=== PATIENT | female | born 1985 | race Hispanic/Latino ===

== ENCOUNTER 2021-05-03 13:34 | Emergency (ER) | payer OTHER ==
[~2021-05-03] VITALS: Ht 154.9 cm; Wt 67.0 kg
[2021-05-03] MEDS ORDERED: PROT1TAB2 PO (13:45)
[2021-05-03 15:12] LABS: BASO % 0.5 % (0.0-1.0); EOS # 0.2 10^3/uL (0.0-0.5); EOS % 3.2 % (0.0-3.0); HEMATOCRIT 34.9 % (36.0-47.0); HEMOGLOBIN 10.9 g/dl (12.0-15.5); LYMPH # 1.9 10^3/uL (1.5-5.0); LYMPH % 25.6 % (24.0-44.0); MEAN CORPUSCULAR HEMOGLOBIN 26.1 pg (27.0-33.0); MEAN CORPUSCULAR HGB CONC 31.2 g/dl (32.0-36.5); MEAN CORPUSCULAR VOLUME 83.7 fl (80.0-96.0); MONO # 0.4 10^3/uL (0.0-0.8); MONO % 5.9 % (2.0-8.0); NEUTROPHILS # 4.8 10^3/uL (1.5-8.5); NEUTROPHILS % 64.5 % (36.0-66.0); PLATELET COUNT, AUTOMATED 253 10^3/uL (150-450); RED BLOOD COUNT 4.17 10^6/uL (4.00-5.40); WHITE BLOOD COUNT 7.4 10^3/uL (4.0-10.0)
[2021-05-03 15:42] LABS: ALBUMIN 3.9 GM/DL (3.2-5.2); ALT/SGPT 22 U/L (12-78); BILIRUBIN,DIRECT < 0.1 MG/DL (0.0-0.2); BILIRUBIN,TOTAL 0.4 MG/DL (0.2-1.0); BLOOD UREA NITROGEN 10 MG/DL (7-18); CALCIUM LEVEL 8.5 MG/DL (8.5-10.1); CARBON DIOXIDE LEVEL 25 MEQ/L (21-32); CHLORIDE LEVEL 108 MEQ/L (98-107); CREATININE FOR GFR 0.64 MG/DL (0.55-1.30); GLOMERULAR FILTRATION RATE > 60.0 (>60); GLUCOSE, FASTING 86 MG/DL (70-100); LIPASE 87 U/L (73-393); POTASSIUM SERUM 3.8 MEQ/L (3.5-5.1); SODIUM LEVEL 138 MEQ/L (136-145); TOTAL PROTEIN 7.1 GM/DL (6.4-8.2)
[2021-05-03] MEDS ORDERED: ONDANSETRON 4MG/2ML VIAL IV ONE (16:30)
[2021-05-03] MEDS ORDERED: ACETAMINOPHEN 500 MG TAB PO ONE (16:30)
[2021-05-03] MEDS ORDERED: ISOVUE-370 76% 100ML VIAL As Ordered ONE (16:32)
[2021-05-03 16:43] LABS: HCG, SERUM QUALITATIVE NEGATIVE (NEGATIVE)
--- NOTE | 2021-05-03 18:11 | REPVR ---
PROCEDURE INFORMATION: Exam: CT Abdomen And Pelvis With Contrast Exam date and time: 05/03/2021 4:58 PM Age: 36 years old Clinical indication: Other: Rlq and R flank/low back pain, R/O appendicitis vs stone TECHNIQUE: Imaging protocol: Computed tomography of the abdomen and pelvis with contrast. Radiation optimization: All CT scans at this facility use at least one of these dose optimization techniques: automated exposure control; mA and/or kV adjustment per patient size (includes targeted exams where dose is matched to clinical indication); or iterative reconstruction. Contrast material: ISOVUE 370; Contrast volume: 100 ml; Contrast route: INTRAVENOUS (IV); COMPARISON: No relevant prior studies available. FINDINGS: Liver: Normal. No mass. Gallbladder and bile ducts: Normal. No calcified stones. No ductal dilation. Pancreas: Normal. No ductal dilation. Spleen: Normal. No splenomegaly. Adrenal glands: Normal. No mass. Kidneys and ureters: Normal. No hydronephrosis. Stomach and bowel: Unremarkable. No obstruction. No mucosal thickening. Appendix: Appendix is unremarkable. Intraperitoneal space: Unremarkable. No free air. No significant fluid collection. Vasculature: Unremarkable. No abdominal aortic aneurysm. Lymph nodes: Unremarkable. No enlarged lymph nodes. Urinary bladder: Unremarkable as visualized. Reproductive: 1.7 cm cyst in the right ovary. Bones/joints: Unremarkable. No acute fracture. Soft tissues: Unremarkable. IMPRESSION: No acute abdominal or pelvic abnormality. Electronically signed by: Burke Huerta On 05/03/2021 18:11:21 PM
--- NOTE | 2021-05-03 19:41 | REP ---
INDICATION: RLQ/R pelvic pain, R ovarian cyst, r/o torsion. COMPARISON: CT scan today. TECHNIQUE: Transabdominal and transvaginal scanning performed. FINDINGS: Uterine dimensions are 8.1 x 4.4 x 5.5 cm. Endometrial echo is 16 mm in AP dimension and centrally placed. There is a rounded echogenic structure in the fundal endometrium 1.1 x 1.0 x 0.8 cm which may represent an endometrial polyp. In the right uterus a fibroid measures 1.8 cm in diameter. The bladder measures 7.4 x 5.4 x 9.1cm. The right ovary has dimensions of 4.2 x 1.8 x 2.7 cm. It's Doppler flow is normal with a resistive index of 0.60. The left ovary dimensions are 2.9 x 2.2 x 2.0 cm. It's Doppler flow was normal with resistive index of 0.63. A complex cystic structure in the right ovary measures 2.3 x 2.9 x 1.6 cm. No free fluid is seen in the cul-de-sac. IMPRESSION: Endometrial polyp is suspected 1.1 cm in maximum diameter. Right uterine fibroid 1.8 cm in diameter. Complex cystic structure right ovary 2.9 cm in maximum diameter may represent a complex dominant follicle. No torsion or free fluid. <Electronically signed by Kris De Los Santos > 05/03/211936
[2021-05-03] MEDS ORDERED: FLAG500T PO (20:05)
[2021-05-03 20:26] VITALS: BP 114/68
--- NOTE | 2021-05-04 06:39 | ED PDOC ---
Post-Departure Follow-Up pelvic us faxed to [facility] and dr quigley for fu Coty Vogt MD May 04, 2021 06:39
== END 2021-05-03 20:33 | disposition home or self-care (01) ==
LOC: M ED 13:34
DX: R10.31 Right lower quadrant pain (principal); N84.0 Polyp of corpus uteri; D25.9 Leiomyoma of uterus, unspecified; N76.0 Acute vaginitis; N83.201 Unspecified ovarian cyst, right side; R11.0 Nausea; R19.7 Diarrhea, unspecified; K21.9 Gastro-esophageal reflux disease without esophagitis; J45.909 Unspecified asthma, uncomplicated; G89.29 Other chronic pain; M54.5 Low back pain; M25.561 Pain in right knee
CPT/HCPCS: 74177; 76830; 76856; 80048; 80076; 81001; 83690; 84703; 85025; 87210; 93976; 96374; 99284; J2405; Q9967

== ENCOUNTER 2021-07-17 10:51 | Day surgery (SDC) | payer OTHER ==
[~2021-07-17] VITALS: Ht 154.9 cm; Wt 64.0 kg
[~2021-07-17 10:51] MED LIST: ACETAMINOPHEN *IV* 1,000 MG IV ONE; ADV100INH INH; ALBU83IN INH; FLAG500T PO; LR 1,000 ML IV ONE; PROT1TAB2 PO; ZONI50CA11
[2021-07-17 11:58] LABS: HEMATOCRIT 36.1 % (36.0-47.0); HEMOGLOBIN 11.6 g/dl (12.0-15.5); MEAN CORPUSCULAR HEMOGLOBIN 26.4 pg (27.0-33.0); MEAN CORPUSCULAR HGB CONC 32.1 g/dl (32.0-36.5); MEAN CORPUSCULAR VOLUME 82.2 fl (80.0-96.0); PLATELET COUNT, AUTOMATED 234 10^3/uL (150-450); RED BLOOD COUNT 4.39 10^6/uL (4.00-5.40); WHITE BLOOD COUNT 5.3 10^3/uL (4.0-10.0)
[2021-07-17 12:18] LABS: BLOOD UREA NITROGEN 10 MG/DL (7-18); CALCIUM LEVEL 8.9 MG/DL (8.5-10.1); CARBON DIOXIDE LEVEL 28 MEQ/L (21-32); CHLORIDE LEVEL 106 MEQ/L (98-107); CREATININE FOR GFR 0.81 MG/DL (0.55-1.30); GLOMERULAR FILTRATION RATE > 60.0 (>60); GLUCOSE, FASTING 108 MG/DL (70-100); POTASSIUM SERUM 4.1 MEQ/L (3.5-5.1); SODIUM LEVEL 137 MEQ/L (136-145)
[2021-07-17 12:22] LABS: HCG, SERUM QUALITATIVE NEGATIVE (NEGATIVE)
[2021-07-17] MEDS ORDERED: MIDAZOLAM INJ 2MG/2ML VIAL (J2250 PER 1MG) As Ordered ONE (13:00)
[2021-07-17] MEDS ORDERED: dexameTHASONE 4 MG/ML 1ML VIAL (J1100 PER 1MG) As Ordered ONE (13:00)
[2021-07-17] MEDS ORDERED: KETOROLAC 60MG 2ML VIAL As Ordered ONE (13:00)
[2021-07-17] MEDS ORDERED: fentaNYL 100 MCG/2 ML INJECTION (J3010) As Ordered ONE (13:00)
[2021-07-17] MEDS ORDERED: LIDOCAINE 2% 100MG/5ML SDV (FOR ANES.) As Ordered ONE (13:00)
[2021-07-17] MEDS ORDERED: ONDANSETRON 4MG/2ML VIAL As Ordered ONE (13:00)
[2021-07-17] MEDS ORDERED: propofoL 200 MG/20 ML VIAL As Ordered ONE (13:00)
[2021-07-17] MEDS ORDERED: METOCLOPRAMIDE INJ 10MG/2ML VIAL (J2765 PER 1) As Ordered ONE (13:00)
[2021-07-17] MEDS ORDERED: SILVER NITRATE APPLICATOR As Ordered ONE ×2 (13:28→14:42)
[2021-07-17] MEDS ORDERED: LEVONORGESTREL 52MG (MIRENA) IUD As Ordered ONE (13:28)
[2021-07-17] MEDS ORDERED: LIDOCAINE 1% SDV 30ML VIAL As Ordered ONE (13:28)
[2021-07-17] MEDS ORDERED: ONDANSETRON 4MG/2ML VIAL IV PRN (14:50)
[2021-07-17] MEDS ORDERED: LR 1,000 ML IV SCH (14:50)
[2021-07-17] MEDS ORDERED: MEPERIDINE INJ 25 MG/ML VIAL (J2175) IV PRN (14:50)
[2021-07-17] MEDS ORDERED: fentaNYL 100 MCG/2 ML INJECTION (J3010) IV PRN (14:50)
[2021-07-17] MEDS ORDERED: oxyCODONE 5MG TAB PO PRN (14:50)
[2021-07-17] MEDS ORDERED: METOCLOPRAMIDE INJ 10MG/2ML VIAL (J2765 PER 1) IV PRN (14:50)
[2021-07-17 16:00] VITALS: BP 111/66
[2021-07-17] MEDS ORDERED: KETOROLAC 30 MG/ML 1ML VIAL IV ONE (20:00)
== END 2021-07-17 16:19 | disposition home or self-care (01) ==
LOC: M SDC 10:51
PROVIDERS: ATTEND Obstetrics & Gynecology
DX: N84.0 Polyp of corpus uteri (principal); N93.9 Abnormal uterine and vaginal bleeding, unspecified; N99.71 Accidental puncture and laceration of a genitourinary system organ or structure during a genitourinary system procedure; J45.909 Unspecified asthma, uncomplicated; K21.9 Gastro-esophageal reflux disease without esophagitis; G43.909 Migraine, unspecified, not intractable, without status migrainosus; Z91.013 Allergy to seafood; Z91.048 Other nonmedicinal substance allergy status; Z91.040 Latex allergy status; Z79.899 Other long term (current) drug therapy; Z79.51 Long term (current) use of inhaled steroids
CPT/HCPCS: 36415; 58300; 58558; 80048; 84703; 85027; 86850; 86900; 86901; 88305; J1100; J1885; J2250; J2405; J2765; J3010; J7298

== ENCOUNTER 2022-03-20 13:10 | Emergency (ER) | payer OTHER ==
[~2022-03-20] VITALS: Ht 185.4 cm; Wt 66.3 kg
[~2022-03-20 13:10] MED LIST changes: -ACETAMINOPHEN *IV* 1,000 MG IV ONE; -LR 1,000 ML IV ONE
[2022-03-20] MEDS ORDERED: TIZA10TA (13:20)
[2022-03-20] MEDS ORDERED: EPIN0.3I11 (13:20)
[2022-03-20] MEDS ORDERED: TOPI25TA10 (13:20)
[2022-03-20 17:19] LABS: BASO % 0.4 % (0.0-1.0); EOS # 0.2 10^3/uL (0.0-0.5); EOS % 1.7 % (0.0-3.0); HEMATOCRIT 36.9 % (36.0-47.0); LYMPH # 2.4 10^3/uL (1.5-5.0); LYMPH % 25.8 % (24.0-44.0); MEAN CORPUSCULAR HEMOGLOBIN 26.7 pg (27.0-33.0); MEAN CORPUSCULAR HGB CONC 32.5 g/dl (32.0-36.5); MONO # 0.6 10^3/uL (0.0-0.8); MONO % 6.9 % (2.0-8.0); NEUTROPHILS % 64.8 % (36.0-66.0); PLATELET COUNT, AUTOMATED 299 10^3/uL (150-450); WHITE BLOOD COUNT 9.3 10^3/uL (4.0-10.0)
[2022-03-20 17:30] LABS: INR 0.9; PROTHROMBIN TIME 12.6 SECONDS (12.7-14.5)
[2022-03-20 17:31] LABS: PARTIAL THROMBOPLASTIN TIME 28.2 SECONDS (25.9-37.0)
[2022-03-20 17:33] LABS: D-DIMER QUANT 614.62 ng/ml (<500)
[2022-03-20 17:40] LABS: ERYTHROCYTE SEDIMENTATION RATE 24 mm/hr (0-20)
[2022-03-20 17:52] LABS: HCG, SERUM QUALITATIVE NEGATIVE (NEGATIVE)
[2022-03-20 18:47] LABS: ALBUMIN 4.3 GM/DL (3.2-5.2); ALT/SGPT 15 U/L (12-78); BILIRUBIN,DIRECT < 0.1 MG/DL (0.0-0.2); BILIRUBIN,TOTAL 0.4 MG/DL (0.2-1.0); BLOOD UREA NITROGEN 10 MG/DL (7-18); C REACTIVE PROTEIN QUANTITATIV 0.89 MG/DL (0.00-0.30); CALCIUM LEVEL 9.7 MG/DL (8.5-10.1); CARBON DIOXIDE LEVEL 23 MEQ/L (21-32); CHLORIDE LEVEL 108 MEQ/L (98-107); CREATININE FOR GFR 0.66 MG/DL (0.55-1.30); GLOMERULAR FILTRATION RATE > 60.0 (>60); GLUCOSE, FASTING 83 MG/DL (70-100); NT-PRO BNP 25 PG/ML (<125); POTASSIUM SERUM 3.6 MEQ/L (3.5-5.1); RHEUMATOID FACTOR QUANT < 10.0 IU/ML (<15.0); SODIUM LEVEL 140 MEQ/L (136-145); TOTAL PROTEIN 7.4 GM/DL (6.4-8.2)
[2022-03-20 21:07] VITALS: BP 119/76
[2022-03-20 21:15] LABS: HEMOGLOBIN A1c 5.9 %
== END 2022-03-20 21:10 | disposition home or self-care (01) ==
LOC: M ED 13:10
DX: R22.43 Localized swelling, mass and lump, lower limb, bilateral (principal); M54.50 Low back pain, unspecified; M54.2 Cervicalgia; J45.909 Unspecified asthma, uncomplicated; K21.9 Gastro-esophageal reflux disease without esophagitis; G43.909 Migraine, unspecified, not intractable, without status migrainosus; Z91.040 Latex allergy status; Z91.013 Allergy to seafood

== ENCOUNTER → 2022-07-31 | Outpatient (REF) | payer OTHER ==
[~2022-07-31] MED LIST changes: +ALBU2.5V10 INH; -ALBU83IN INH; +EPIN0.3I11; +TIZA10TA; +TOPI25TA10
[2022-07-31 17:48] LABS: BASO % 0.4 % (0.0-1.0); EOS # 0.2 10^3/uL (0.0-0.5); EOS % 3.6 % (0.0-3.0); HEMATOCRIT 37.5 % (36.0-47.0); HEMOGLOBIN 11.5 g/dl (12.0-15.5); LYMPH # 1.8 10^3/uL (1.5-5.0); LYMPH % 26.4 % (24.0-44.0); MEAN CORPUSCULAR HEMOGLOBIN 25.3 pg (27.0-33.0); MEAN CORPUSCULAR HGB CONC 30.7 g/dl (32.0-36.5); MEAN CORPUSCULAR VOLUME 82.6 fl (80.0-96.0); MONO # 0.4 10^3/uL (0.0-0.8); MONO % 5.6 % (2.0-8.0); NEUTROPHILS # 4.3 10^3/uL (1.5-8.5); NEUTROPHILS % 63.7 % (36.0-66.0); PLATELET COUNT, AUTOMATED 312 10^3/uL (150-450); RED BLOOD COUNT 4.54 10^6/uL (4.00-5.40); WHITE BLOOD COUNT 6.7 10^3/uL (4.0-10.0)
[2022-07-31 17:59] LABS: CREATININE,RANDOM URINE 96.4 MG/DL; TOTAL PROTEIN,RANDOM URINE 8.3 MG/DL (0.0-12.0)
[2022-07-31 19:09] LABS: C REACTIVE PROTEIN QUANTITATIV 0.65 MG/DL (0.00-0.30); PHOSPHORUS LEVEL 3.8 MG/DL (2.5-4.9)
[2022-07-31 19:19] LABS: ERYTHROCYTE SEDIMENTATION RATE 20 mm/hr (0-20)
[2022-07-31 19:36] LABS: APPEARANCE, URINE MANUAL CLEAR (CLEAR); COLOR, URINE MANUAL YELLOW (YELLOW)
[2022-07-31 19:37] LABS: BILIRUBIN, URINE MANUAL NEGATIVE (NEGATIVE); BLOOD URINE MANUAL POSITIVE (NEGATIVE); GLUCOSE, URINE (UA) MANUAL NEGATIVE (NEGATIVE); KETONE, URINE MANUAL NEGATIVE (NEGATIVE); LEUKOCYTE ESTERASE, URINE MAN NEGATIVE (NEGATIVE); NITRITE, URINE MANUAL NEGATIVE (NEGATIVE); PH,URINE MAN 6.5 UNITS (5.0 - 7.0); PROTEIN, URINE MANUAL NEGATIVE (NEGATIVE); UROBILINOGEN, URINE MANUAL NORMAL (NORMAL)
[2022-07-31 19:50] LABS: BACTERIA, URINE LARGE AMOUNT; HYALINE CAST, URINE NONE SEEN /lpf (0-1); SQUAMOUS EPITHELIAL CELL URINE MOD AMOUNT /hpf (SMALL AMT)
[2022-07-31 20:12] LABS: TOTAL 25(OH) VITAMIN D 15.6 NG/ML (30.0-100.0)
[2022-08-01 12:24] LABS: DRVV SCREEN 34.5 SEC
[2022-08-01 13:06] LABS: PTT LUPUS TYPE ANTICOAG SCREEN 0.9 (0-1.2)
== END ==
LOC: M SFHCRHEU 15:37
PROVIDERS: ATTEND Internal Medicine
DX: R76.8 Other specified abnormal immunological findings in serum (principal); M79.10 Myalgia, unspecified site; M25.50 Pain in unspecified joint